=== PATIENT | male | born 1960 | race Caucasian/White ===

== ENCOUNTER 2021-03-31 19:51 | Inpatient (IN) | payer BC ==
[~2021-03-31] VITALS: Ht 172.7 cm; Wt 99.8 kg
[~2021-03-31 19:51] MED LIST: PERCOCET 5-3251 EACH PO
[2021-03-31 20:29] VITALS: BP 168/96
[2021-03-31] MEDS ORDERED: MONTELUKAST SODI4 M1 PO (20:32)
[2021-03-31] MEDS ORDERED: SYMBICORT160 MCG/4. INH (20:32)
[2021-03-31] MEDS ORDERED: AZELASTINE205.5 MCG/ NARES (20:32)
[2021-03-31] MEDS ORDERED: LEVO-T100 MCG PO (20:32)
[2021-03-31] MEDS ORDERED: SPIRIVA18 MCG INH (20:33)
[2021-03-31] MEDS ORDERED: OMEPRAZOLE 20 M20 M1 PO (20:33)
[2021-03-31] MEDS ORDERED: ZYRTEC10 M5 PO (20:33)
[2021-03-31] MEDS ORDERED: PROAIR HFA8.5 GM INH (20:33)
[2021-03-31 20:47] LABS: ABSOLUTE EOSINOPHILS 0.3 thou/uL (0.0-0.7); EOSINOPHILS 4.6 %; MCH 30.8 pg (26.0-34.0); NUCLEATED RBCS 0 /100WBC
[2021-03-31 20:48] LABS: ABSOLUTE BASOPHILS 0.1 thou/uL (0.0-0.2); ABSOLUTE LYMPHOCYTES 1.9 thou/uL (0.8-5.3); ABSOLUTE MONOCYTES 0.9 thou/uL (0.0-1.2); ABSOLUTE NEUTROPHILS 3.3 thou/uL (1.6-8.1); BASOPHILS 1.3 %; HEMATOCRIT 48.8 % (42.0-52.0); LYMPHOCYTES 29.1 %; MCHC 34.8 g/dL (28.0-37.0); MCV 88.5 fL (80.0-100.0); MONOCYTES 13.3 %; MPV 8.1 fl. (7.2-11.1); PLATELET COUNT* 219 thou/uL (150-400); POLYS 51.7 %; RBC 5.51 mil/uL (4.50-6.00); WBC 6.4 thou/uL (4.0-11.0)
[2021-03-31 20:58] LABS: CALCIUM 8.9 mg/dL (8.5-10.1); CREATININE 1.3 mg/dL (0.6-1.3); POTASSIUM 4.1 mmol/L (3.5-5.1)
[2021-03-31 21:09] LABS: ALBUMIN 4.1 g/dL (3.4-5.0); TOTAL BILIRUBIN 0.6 mg/dL (<0.1-1.0); TOTAL PROTEIN 7.3 g/dL (6.4-8.2)
[2021-03-31 23:05] LABS: INFLUENZA A ANTIGEN Negative (Negative); INFLUENZA B ANTIGEN Negative (Negative)
[2021-04-01 04:03] VITALS: BP 143/71
[2021-04-01 10:10] VITALS: BP 132/84
[2021-04-01 10:30] VITALS: BP 132/84
[2021-04-01 10:35] VITALS: BP 145/93
--- NOTE | 2021-04-01 10:46 | EKG ---
[place] [address] ELECTROCARDIOGRAM REPORT Name: MAURICE LOZADA JR Room: [place] [address] ADM IN [facility]#: [id number] Admission: 04/01/21 Attend Phys: Tamika Ahumada, Discharge: Date of : 64 Date of Service: 03/31/212023 Report #: [id number] THIS REPORT FOR: //name// [facility] ED Test Date: 2021-03-31 Test Time: 20:24:42 Pat Name: MAURICE LOZADA Department: Room: [facility] Gender: M [employer] Supervisor: FRACISCO : 1960 Requested By: Trupti Montiel Order Number: [id number] MD: Melvin Louis Measurements Intervals Regent Rate: 78 P: 20 KS: 209 QRS: -43 QRSD: 121 T: 57 QT: 395 QTc: 450 Interpretive Statements Sinus rhythm Borderline prolonged KS interval RBBB and LAFB No previous ECG available for comparison Electronically Signed On 04-01-2021 10:46:32 ELECTRIC RANGE ASSEMBLER by Melvin Louis [email or web address] <ELECTRONICALLY SIGNED> By: Melvin Louis MD, FAC 04/01/21 1046 23 23 Melvin Louis MD, [facility] /EPI
--- NOTE | 2021-04-01 13:00 | NUR ---
ASSUMED CARE OF PT. PLEASE SEE DOCUMENTED ASSESSMENT FROM NURSE ROBYN BLANCO. AGREE W/THIS NURSES' ASSESSMENT. PT IS AXOX4. WAITING FOR BED, IN PRE OP. ADMISSION HX AND ASSESSMENT COMPLETED BY ROBYN BLANCO. GOAL THIS SHIFT: SEE CAPACITY ANALYST, MONITOR BREATHING (DILLAN FOR SHORTNESS OF BREATH), AND ADVANCE PLAN OF CARE.
--- NOTE | 2021-04-01 14:25 | NUR ---
Attempted to see pt x2. No discharge needs anticipated.
--- NOTE | 2021-04-01 14:27 | NUR ---
DR. JASMINE HERE ON THE UNIT. UPDATED ON PT STATUS.
--- NOTE | 2021-04-01 16:14 | NUR ---
TRANSMISSION SYSTEM OPERATOR HERE FOR ULTRASOUND OF KIDNEYS. NEW ORDERS WERE RCV'D FROM DR. JASMINE.
[2021-04-01 16:20] LABS: CALCIUM 9.2 mg/dL (8.5-10.1); CREATININE 1.4 mg/dL (0.6-1.3); MAGNESIUM 2.2 mg/dL (1.8-2.4); POTASSIUM 3.7 mmol/L (3.5-5.1)
[2021-04-01 17:05] VITALS: BP 138/78
--- NOTE | 2021-04-01 17:30 | NUR ---
PT TRANSFERRED FROM PACU BAY "G" TO ROOM 311 VIA BED. REPORT GIVEN TO ROBYN JACKSON. ALL BELONGINGS SENT W/PT. PLAN FOR MORE ADVANCED CT SCAN IN 48 HOURS AND EITHER BRONCHOSCOPY HERE OR TX TO FOR SPECIAL BRONCHOSCOPY THAT CAN OBTAIN BIOPSY FROM LYMPH NODES.
--- NOTE | 2021-04-01 17:49 | NUR ---
PATIENT TRANSFERED TO [facility] FROM PACU VIA BED ACCOMPANIED BY PACU NURSES. ORIENTED TO ROOM AND FLOOR. RESTING IN BED. ALL QUESTIONS AND CONCERNS ADDRESSED.
[2021-04-01 20:09] VITALS: BP 133/77
[2021-04-02 04:05] LABS: HEMATOCRIT 47.1 % (42.0-52.0); MCH 30.1 pg (26.0-34.0); MCV 88.6 fL (80.0-100.0); MPV 8.1 fl. (7.2-11.1); NUCLEATED RBCS 0 /100WBC; PLATELET COUNT* 201 thou/uL (150-400); RBC 5.32 mil/uL (4.50-6.00); RDW-CV 13.2 % (10.5-14.5); WBC 6.2 thou/uL (4.0-11.0)
--- NOTE | 2021-04-02 04:06 | NUR ---
PT A&OX4, VSS ON ROOM AIR, IV SALINE LOCKED, PT UP AD ALE, NO CO PAIN OR DISCOMFORT. PT SLEEPING WELL, WILL CONTINUE TO MONITOR.
[2021-04-02 04:35] LABS: ALBUMIN 3.7 g/dL (3.4-5.0); CREATININE 1.4 mg/dL (0.6-1.3); MAGNESIUM 1.9 mg/dL (1.8-2.4); POTASSIUM 4.4 mmol/L (3.5-5.1); TOTAL BILIRUBIN 0.5 mg/dL (<0.1-1.0)
[2021-04-02 06:17] LABS: ABSOLUTE LYMPHOCYTES 0.4 thou/uL (0.8-5.3); ABSOLUTE MONOCYTES 0.1 thou/uL (0.0-1.2); ABSOLUTE NEUTROPHILS 5.7 thou/uL (1.6-8.1)
[2021-04-02 06:19] LABS: PLATELET ESTIMATE ADEQUATE
[2021-04-02 08:27] VITALS: BP 141/85
[2021-04-02 15:59] VITALS: BP 125/74
[2021-04-02 20:50] VITALS: BP 142/81
--- NOTE | 2021-04-03 04:36 | NUR ---
PT A&OX4, VSS ON ROOM AIR, PT UP AD ALE, IV FLUIDS INFUSING ORDERED, NO CO PAIN OR DISCOMFORT. PT SLEEPING INTERMITTENTLY. WILL CONTINUE TO MONITOR.
[2021-04-03 08:30] VITALS: BP 118/92
[2021-04-03 08:32] LABS: CALCIUM 8.9 mg/dL (8.5-10.1); CREATININE 1.4 mg/dL (0.6-1.3); MAGNESIUM 2.2 mg/dL (1.8-2.4); POTASSIUM 4.2 mmol/L (3.5-5.1)
[2021-04-03] MEDS ORDERED: PREDNISONE 10 M10 MG PO (13:41)
[2021-04-03] MEDS ORDERED: LEVOFLOXACIN750 MG PO (13:41)
[2021-04-03] MEDS ORDERED: PROTONIX40 M4 PO (13:41)
[2021-04-03 16:00] VITALS: BP 141/71
[2021-04-03 20:00] VITALS: BP 147/85
--- NOTE | 2021-04-04 04:52 | NUR ---
ASSUMED PT CARE AT 1930. PT ALERT AND ORIENTED X4, POLITE AND COOPERATIVE WITH CARES. DENIES PAIN OR NEEDS. PT UP AD ALE. WAS TO HAVE DISCHARGED YESTERDAY BUT AWAITING CT SCAN BEFORE DC. PT TO HAVE BRONCHOSCOPY OUTPATIENT. CALL LIGHT IN REACH. HOURLY ROUNDING IN PROGRESS, WILL CONTINUE TO MONITOR.
[2021-04-04 04:53] VITALS: BP 140/84
[2021-04-04 08:00] VITALS: BP 151/79
[2021-04-04 13:27] VITALS: BP 140/84
--- NOTE | 2021-04-04 16:07 | NUR ---
PT DISCHARGED HOME WITH ALL BELONGINGS ACCOMPANIED BY HIS . VSS AFEBRILE. PT UP AMBULATORY INB THE ROOM. PT CAT SCANS COMPLETED THIS AM. DR. LOYOLA SAW PT AND TOLD THIS GRADUATE INTERNSHIP TO GIVE HIM THE PHONE NUMBER TO HIS OFFICE SO THE PT CAN CALL TOMMORROW. PT DENIED PAIN ON DISMISSAL. SALINE LOCK REMOVED HUB INTACT,
--- NOTE | 2021-04-04 16:08 | CON ---
[address] [address] CONSULTATION Name: NEVILLEMAURICE MCKEON JR Room: [address] IN .R.#: [id number] Admission: 04/01/21 Attend Phys: Tamika Ahumada MD Discharge: Date of : 64 Report #: [id number] THIS REPORT FOR: cc: Oliverio Carrasco MD, Dylan MD Pervez, Adeel MD ~ DATE OF CONSULTATION: 04/01/2021 Consult has been requested by Dr. Sincere Day. INDICATION FOR CONSULTATION: Possible lung mass/mediastinal lymphadenopathy. HISTORY OF PRESENT ILLNESS: A 61-year-old gentleman. He is a lifetime nonsmoker. 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 The patient stated that on the biopsy there was another malignancy as well. I do not have details available. He does have mild elevation in his creatinine to 1.3 upon arrival here. There is a previous creatinine which is 1.7. He has had kidney stones. I do not have a previous baseline available. The patient reports that he has been having increasing shortness of breath as well as cough for the last 2-3 months. He has been treated initially with azithromycin in January and then with Augmentin in February. He continues to remain symptomatic and has noticed a slow progression of his symptoms. The patient also did have a chest x-ray performed recently, which was abnormal; therefore, he came to the Emergency Room for evaluation. There is not much sputum, occasionally has had some chest pressure, but no chest pain. He has had some clear nasal discharge which is longstanding. There is no sore throat. There is no swelling of lower extremities. There is no calf pain. Previously has had heartburn, which is under control at this time. REVIEW OF SYSTEMS: A 12 points is negative except as mentioned above. PAST MEDICAL HISTORY: Bronchial asthma, medullary carcinoma of the thyroid. The patient states there was a second malignancy on the biopsy also, details not available; MEN syndrome, kidney stones. There is mild elevation in creatinine as above. I do not have baseline available at this time; gastroesophageal reflux disease, allergic rhinitis. SOCIAL HISTORY: Lifetime nonsmoker. No known history of heavy alcohol use or illegal drug use. CURRENT MEDICATIONS: [place] [address] CONSULTATION Name: MAURICE LOZADA JR Room: [address]#: [id number] Admission: 04/01/21 Attend Phys: Tamika Ahumada MD Discharge: Date of : 64 Report #: [id number] HOME MEDICATIONS: List in [facility] reviewed. Also, see discussion above. FAMILY HISTORY: The patient's sister has also had medullary carcinoma of the thyroid. PHYSICAL EXAMINATION: GENERAL: He is alert, awake and oriented. He is in no distress at this time. VITAL SIGNS: Has a pulse of 94 and a blood pressure of 145/93. He is saturating 96%. He is not on supplemental oxygen. His respiratory rate was 18, temperature is mildly elevated to 37.3, this is an isolated reading. Otherwise, he has been around 36.7. HEENT: Head is normocephalic and atraumatic. Pupils are equal and reactive. There is no throat erythema. NECK: Does not show raised JVP, asymmetry, mass or lymph nodes. CHEST: Symmetrical expansion on inspection and palpation. On auscultation, breath sounds are bilaterally equal. Expirations are prolonged. I do not hear any added sounds. HEART: Regular. There is no murmur. ABDOMEN: Soft and nontender. EXTREMITIES: Lower extremities show no edema and no calf tenderness. SKIN: Dry and intact. NEUROLOGIC: Moves all extremities bilaterally equally and spontaneously with no focal deficit identified. IMAGING DATA: CT of chest films as well as reports are in [facility]. I reviewed both the films and report of these are as discussed below. LABORATORY DATA: The patient's lab work is in [facility] and this is also reviewed. ASSESSMENT/PLAN: 1. Mediastinal lymphadenopathy/right middle lobe obstruction/post obstructive infiltrate. He does have significant lymphadenopathy. There is also suspicion of obstruction of the right middle lobe bronchus. I do not, however, see any definite mass in this region. Mucus plugging will also be possible that is more likely that either there is a mass or there is external pressure from the mediastinal lymph nodes. We also seen an infiltrate, which is postobstructive. He has had outpatient antibiotics already. However, I do not have previous imaging available to compare and assess as to whether the infiltrate has been adequately treated. Therefore, at this point, I would go ahead and give him Levaquin and I would also do more cultures and serologies as below. He does appear to be bronchospastic as well and therefore, I would treat him accordingly for this as well. [address] [address] CONSULTATION Name: MAURICE LOZADA JR Room: [address] IN .R.#: [id number] Admission: 04/01/21 Attend Phys: Tamika Ahumada MD Discharge: Date of : 64 Report #: [id number] I would like to evaluate further the extent of the lymphadenopathy and therefore, I would consider doing a CT of the neck as well as abdomen and pelvis with IV dye tomorrow. It is, however, noted that the patient's creatinine is mildly elevated yesterday; therefore, I did not order at this time and I would first follow trend on creatinine. Note that he did receive IV dye yesterday. After dressing the above, I possibly could do a bronchoscopy on Sunday. We do not, however, have bronchoscopy with endobronchial ultrasound available at this hospital and this will therefore be a regular bronchoscopy unless there is actual invasion of the bronchus. It may not be possible to biopsy the lymph nodes seen; therefore, the other alternate will be to send him directly to another institution for [facility] as an outpatient for a bronchoscopy with endobronchial ultrasound. I discussed this with the patient. We will assess further tomorrow and then advised. 2. Bronchial asthma exacerbation/bronchospasm. I will treat him with steroids. We will also give him nebulized bronchodilators. Obstruction predominantly appears to be either secondary to mass or enlarged lymph nodes. A component of mucus plugging as possible; therefore, I will go ahead and give him Mucomyst and Mucinex as well. 3. History of renal stone/renal insufficiency. Baseline creatinine is not known. We will do a renal ultrasound down the line I am planning to consider a CT of the abdomen and pelvis as above. 4. 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 See discussion above. 5. Deep venous thrombosis prophylaxis, on Lovenox and gastrointestinal prophylaxis, Protonix. 6. Clostridium difficile prophylaxis, Lactinex. Thanks for this consultation. <ELECTRONICALLY SIGNED> By: Jun Ambrosio MD 04/04/21 1608 1353 Nishant Ambrosio MD /nt
--- NOTE | 2021-04-04 17:12 | NUR ---
CM FOLLOWUP PT MEDICALLY CLEAR TO DC HOME. NO CM NEEDS NOTED.
[2021-04-05 02:06] LABS: MYCOPLASMA PNEUMONIA IgG 230 U/mL (0-99); MYCOPLASMA PNEUMONIA IgM <770 U/mL (0-769)
== END 2021-04-04 15:58 | disposition home or self-care (01) | DRG 202 ==
LOC: M.ERS 19:51 → M.TBA-ER 23:23 → M.3W 04-01 17:23
PROVIDERS: Emergency Medicine; Internal Medicine; Internal Medicine Critical Care Medicine; ADMIT Internal Medicine; ATTEND Internal Medicine
DX: J45.901 Unspecified asthma with (acute) exacerbation (principal); J18.9 Pneumonia, unspecified organism; Z79.899 Other long term (current) drug therapy; Z20.822 Contact with and (suspected) exposure to COVID-19